=== PATIENT | female | born 1985 | race Caucasian/White ===

== ENCOUNTER → 2016-03-13 | Outpatient (CLI) | payer MEDICAID | END | disposition home or self-care (01) | LOC: LABWHC1 09:59 | PROVIDERS: ATTEND Obstetrics & Gynecology | DX: O02.1 Missed abortion (principal); Z3A.00 Weeks of gestation of pregnancy not specified | CPT/HCPCS: 36415; 84702 ==

== ENCOUNTER → 2016-04-13 | Outpatient (CLI) | payer MEDICAID | END | disposition home or self-care (01) | LOC: LABWHC1 11:58 | PROVIDERS: ATTEND Obstetrics & Gynecology | DX: O01.9 Hydatidiform mole, unspecified (principal) | CPT/HCPCS: 36415; 84702 ==

== ENCOUNTER → 2016-05-09 | Outpatient (CLI) | payer MEDICAID | LOC: LABWHC1 09:07 | PROVIDERS: ATTEND Obstetrics & Gynecology | DX: O02.0 Blighted ovum and nonhydatidiform mole (principal); Z3A.00 Weeks of gestation of pregnancy not specified | CPT/HCPCS: 36415; 84702 ==

== ENCOUNTER → 2016-12-21 | Outpatient (CLI) | payer MEDICAID | END | disposition home or self-care (01) | LOC: LABWHC1 07:17 | PROVIDERS: ATTEND Obstetrics & Gynecology Reproductive Endocrinology | DX: Z34.00 Encounter for supervision of normal first pregnancy, unspecified trimester (principal); Z3A.00 Weeks of gestation of pregnancy not specified | CPT/HCPCS: 36415; 84702 ==

== ENCOUNTER → 2017-05-31 | Outpatient (CLI) | payer MEDICAID ==
[2017-05-31 13:03] LABS: Glucose 3 Hour, Gest 88 mg/dL
== END | disposition home or self-care (01) ==
LOC: LABWHC1 08:03
PROVIDERS: ATTEND Obstetrics & Gynecology
DX: O99.810 Abnormal glucose complicating pregnancy (principal); Z3A.00 Weeks of gestation of pregnancy not specified
CPT/HCPCS: 36415; 82951; 82952

== ENCOUNTER 2017-07-24 18:54 | Inpatient (IN) | payer MEDICAID ==
[~2017-07-24 18:54] MED LIST: BUPIVACAINE (PF) 0.25% 30 ML VIAL ONE; SODIUM CHLORIDE 0.9% 100 ML BAG ONE; fentaNYL (PF) 50 MCG/ML 5 ML AMP ONE
[2017-07-24] MEDS ORDERED: CARBOPROST TROMETHAMINE 250 MCG/ML 1 ML AMP IM PRN (19:25)
[2017-07-24] MEDS ORDERED: METHYLERGONOVINE 0.2 MG/ML 1 ML AMP IM PRN (19:25)
[2017-07-24] MEDS ORDERED: LIDOCAINE 1% (PF) 10 MG/ML (30 ML SDV) SQ PRN (19:25)
[2017-07-24] MEDS ORDERED: OXYTOCIN 10 UNIT/ML 1 ML VIAL IM PRN (19:25)
[2017-07-24] MEDS ORDERED: TERBUTALINE 1 MG/ML VIAL SQ PRN (19:25)
[2017-07-24] MEDS ORDERED: BUTORPHANOL 1 MG/ML 1 ML VIAL IV PRN (19:26)
[2017-07-24 20:00] VITALS: BMI 29.7
[2017-07-24] MEDS: LACTATED RINGERS 1,000 ML IV SCH ×2 (20:00→22:48)
[2017-07-24 20:50] LABS: Basophils % (A) 0 %; Eosinophils # (A) 0.4 k/uL (0-0.7); Eosinophils % (A) 3 %; HCT 40.1 % (34.0-46.0); HGB 13.6 gm/dL (11.4-16.0); Lymphocytes # (A) 0.9 k/uL (1.0-4.8); Lymphocytes % (A) 8 %; MCH 29.7 pg (25.0-35.0); MCHC 33.9 g/dL (31.0-37.0); MCV 87.7 fL (80.0-100.0); Mean Platelet Volume 7.9; Monocytes # (A) 0.5 k/uL (0-1.0); Monocytes % (A) 5 %; Neutrophils # (A) 9.4 k/uL (1.3-7.7); Neutrophils % (A) 83 %; Platelet Count 191 k/uL (150-450); RBC 4.57 m/uL (3.80-5.40); RDW 13.1 % (11.5-15.5); WBC 11.3 k/uL (3.8-10.6)
[2017-07-24] MEDS ORDERED: BUPIVACAINE (PF) 0.5% 12.5 ML, fentaNYL (PF) 200 MCG in SODIUM CHLORIDE 0.9% 83.5 ML EPIDURAL ONE (22:35)
--- NOTE | 2017-07-25 00:43 | P.HPOB ---
History of Present Illness H&P Date: 07/25/17 Chief Complaint: My water broke at 7 PM This is a 31-year-old white female 2 para 0010 EDC 08/20/2017 at 36 and one sevenths weeks' gestation. Patient states she was sitting at home, resting , when she felt a pop and a large gush of clear fluid. She denied uterine contractions at that time. Fetus is been active throughout the . Past medical history is significant for asthma, and factor V Leiden mutation, heterozygous. Current medications vitamins daily. ALLERGIES none known. Past surgical history: [place] teeth extraction, D&C for miscarriage. Family history: Factor V 5 Leiden heterozygous deficiency, blood clots. Social history patient is , she is a nonsmoker, she denies alcohol or drug use. history blood type is A+, rubella status immune. Group B strep cultures negative, hepatitis B surface antigen negative, HIV testing negative, 1 hour Glucola within normal limits. Gonorrhea and chlamydia cultures negative. On exam this is a pleasant white female, 5 foot 4 inches, 173 pounds, blood pressure 134/81 on admission. The general physical exam is within normal limits. Cervix on admission was 1-2 cm dilated 80% effaced vertex presentation with obvious clear ruptured fluid. Cervix at this time is anterior lip, 0 station, vertex presentation, heart tones are reassuring. Patient has a mild urge to push. There is no peripheral edema. Chest is clear in all purcell. Impression: 36 and one sevenths weeks intrauterine , spontaneous amniorrhexis now in active labor, group B strep cultures negative, all signs reassuring. Plan: Close maternal and surveillance. Anticipate normal spontaneous vaginal delivery. records are not available at time of this dictation , due to patient's early gestation. We will contact the office later this morning for full records. Past Medical History Past Medical History: Asthma Additional Past Medical History / Comment(s): FACTOR FIVE LEIDEN History of Any Multi-Drug Resistant Organisms: None Reported Past Surgical History: No Surgical Hx Reported Additional Past Surgical History / Comment(s): WISDOM TEETH D&C 2015 Past Anesthesia/Blood Transfusion Reactions: No Reported Reaction Past Psychological History: No Psychological Hx Reported Smoking Status: Never smoker Past Alcohol Use History: Occasional Past Drug Use History: None Reported - Past Family History Mother Additional Family Medical History / Comment(s): Factor Five, blood clot with second Medications and Allergies Home Medications Medication Instructions Recorded Confirmed Type Pnv,Calcium 72/Iron/Folic Acid 1 each PO DAILY 02/01/16 07/24/17 History [ Plus Tablet] Allergies Allergy/AdvReac Type Severity Reaction Status Date / Time No Known Allergies Allergy Verified 07/24/17 18:59 Exam - Vital Signs Vital signs: Vital Signs Temp Pulse Resp BP Pulse Ox 07/24/17 19:24 98.9 F 83 16 131/88 100 07/24/17 19:01 98.9 F 84 16 134/81 100 Intake and Output 07/24/17 07/24/17 07/25/17 14:59 22:59 06:59 Other: # Voids 1 Weight 78.471 kg See dictation under HPI please Results Result Diagrams: 07/24/17 20:28 Abnormal Lab Results - Last 24 Hours (Table) 07/24/17 Range/Units 20:28 WBC 11.3 H (3.8-10.6) k/uL Neutrophils # 9.4 H (1.3-7.7) k/uL Lymphocytes # 0.9 L (1.0-4.8) k/uL Assessment and Plan Assessment: 36 and one sevenths weeks intrauterine , active labor, all signs reassuring. Reactive 5 Leiden deficiency, heterozygous Plan: Continue close maternal and surveillance. Anticipate normal spontaneous vaginal delivery. Time with Patient: Less than 30
[2017-07-25] MEDS ORDERED: TERBUTALINE 1 MG/ML VIAL SQ PRN (01:51)
[2017-07-25] MEDS ORDERED: OXYTOCIN 20 UNITS/1000 ML NS 1,000 ML IV SCH (02:00)
--- NOTE | 2017-07-25 03:40 | P.PROBDLV ---
Vaginal Delivery Note - . Vaginal Delivery Note: This is a 31-year-old white female 2 para 0010 EDC 08/20/2017 at 36-2/7 weeks' gestation. Patient presented with spontaneous amniorrhexis which occurred at home last night at 7 PM. Fluid was clear and non-malodorous. Uterine contractions began spontaneously. was remarkable for factor V Leiden mutation, heterozygous, patient on a baby aspirin until 3 days ago. Please see dictated history and physical for details. Patient progressed well through the first stage of labor and was judged to be completely dilated at 0204 hrs. In the second stage of labor a small amount of oxytocin augmentation was given. She ultimately the perineal body was prepped and draped in usual sterile fashion. 's head delivered occiput anterior and he restituted accordingly. There was no nuchal cord noted. Infant rotated and the left shoulder was easily delivered from underneath the pubic symphysis. At this time the oropharynx, nasopharynx, and external nares were bulb suctioned on the perineal body. Patient was officially delivered of a liveborn male infant at 0311 hours. The umbilical cord was doubly clamped and ligated, he was handed to waiting nurses for evaluation where scores of 9 and 9 were given. Upon stimulating the infant with a blue towel, the skin was noted to slough off in sheets. Very gentle care was taken with the . The placenta delivered spontaneously, it was inspected and noted to be intact with trivascular cord at 0318 hours. At this time inspection of the cervix, vagina, perineum, periurethral, and perirectal areas revealed a very small first-degree perineal laceration. This was injected with 1% lidocaine and repaired in the usual fashion using 3-0 Vicryl suture. The fundus is firm, midline, symmetric, 18 week size upon completion of delivery. Estimated blood loss 300 mL's. [place] weighs 6 pounds 7.9 ounces, or 2945 g. In observing the , peripheral edema was noted to occur, most notably in the hands and feet. The epidermis appeared very tight, as this systemic edema was occurring. Closet Organizer was immediately notified, orders given for transfer of to [facility].
[2017-07-25] MEDS ORDERED: ZOLPIDEM 5 MG TAB PO PRN (03:43)
[2017-07-25] MEDS ORDERED: diphenhydrAMINE 50 MG/ML 1 ML VIAL IVP PRN ×2 (03:43)
[2017-07-25] MEDS ORDERED: HYDROCORTISONE 2.5% RECTAL CREAM 30 GM TUBE RECTAL PRN (03:43)
[2017-07-25] MEDS ORDERED: ACETAMINOPHEN TAB 325 MG TAB PO PRN (03:43)
[2017-07-25] MEDS ORDERED: SIMETHICONE 80 MG CHEWABLE PO PRN (03:43)
[2017-07-25] MEDS ORDERED: diphenhydrAMINE 25 MG CAP PO PRN (03:43)
[2017-07-25] MEDS ORDERED: diphenhydrAMINE 50 MG CAP PO PRN (03:43)
[2017-07-25] MEDS ORDERED: LANOLIN CREAM 5 GM TUBE TOPICAL PRN (03:43)
[2017-07-25] MEDS ORDERED: BENZOCAINE/MENTHOL SPRAY 1 GM/SPRAY AEROSOL TOPICAL PRN (03:43)
[2017-07-25] MEDS ORDERED: WITCH HAZEL 1 EACH MED..PAD TOPICAL PRN (03:43)
[2017-07-25] MEDS: IBUPROFEN 600 MG TAB PO PRN ×2 (07:15→13:47)
[2017-07-25] MEDS ORDERED: SENNOSIDES-DOCUSATE SODIUM 1 EACH TAB PO SCH (08:00)
--- NOTE | 2017-07-25 08:00 | P.DS ---
Providers Date of admission: 07/24/17 19:16 Expected date of discharge: 07/25/17 Attending physician: Mary Kay Wolf Primary care physician: Stated None Hospital Course: This is a 31-year-old white female 2 para 0010 EDC 08/20/2017 at 36-2/7 weeks' gestation. Patient presented with spontaneous amniorrhexis, clear fluid , non-malodorous. was remarkable only for history of factor V Leiden mutation, heterozygous. Please see dictated history and physical for details. Patient progressed well and went on to deliver a liveborn male infant with scores of 9 and 9 at one and 5 minutes respectively. Infant weighed 6 pounds 7.9 ounces or 2945 g. was noted to have a sloughing condition of the skin, with increased peripheral edema. Dr. dowell'll be hunter skin diver on-call diagnosed congenital ichthyosis, and the infant was transferred to [facility]. This morning the patient is doing well. She is voiding, ambulating and passing flatus without difficulty. Vital signs are stable and she is afebrile. Bleeding is moderate, no large blood clots, with pain well controlled with ibuprofen products. Breasts are not engorged, patient is requesting early discharge home to accompany her down at [facility]. Patient is being discharged home in good condition. She will follow-up with me in the office in 6 weeks. I have given her prescription for breast pump to be used as needed. She will call the office with any fevers shakes or chills, foul smelling or copious vaginal bleeding, with any pain not alleviated by over- the-counter products, with any issues with breast, perineal body, fundus or indeed with any concerns or questions. We have briefly reviewed options for contraception and we will review this further in the office. Patient Condition at Discharge: Good Plan - Discharge Summary New Discharge Prescriptions: No Action Pnv,Calcium 72/Iron/Folic Acid [ Plus Tablet] 1 each PO DAILY Discharge Medication List Pnv,Calcium 72/Iron/Folic Acid [ Plus Tablet] 1 each PO DAILY 02/01/16 [ History] Follow up Appointment(s)/Referral(s): Mary Kay Wolf MD [STAFF PHYSICIAN] - 6 Weeks Discharge Disposition: HOME SELF-CARE
[2017-07-25 10:10] VITALS: RESP 18
[2017-07-25 14:33] VITALS: BP 116/76; PULSE 90; TEMP 98.4
== END 2017-07-25 15:05 | disposition home or self-care (01) | DRG 775 ==
LOC: FBPOP 18:54 → 4FBP 19:16
PROVIDERS: ADMIT Obstetrics & Gynecology; ATTEND Obstetrics & Gynecology
PROC: 0HQ9XZZ Repair Perineum Skin, External Approach (ICD-10-PCS; principal; 2017-07-24)
PROC: 10E0XZZ Delivery of Products of Conception, External Approach (ICD-10-PCS; principal; 2017-07-24)
DX: O42.013 Preterm premature rupture of membranes, onset of labor within 24 hours of rupture, third trimester (principal); O99.12 Other diseases of the blood and blood-forming organs and certain disorders involving the immune mechanism complicating childbirth; D68.51 Activated protein C resistance; Z37.0 Single live birth; Z3A.36 36 weeks gestation of pregnancy; O70.0 First degree perineal laceration during delivery; Z79.82 Long term (current) use of aspirin
CPT/HCPCS: 59025; 84112; 85025; 86850; 86900; 86901; 88307; 99213